=== PATIENT | male | born 1980 | race Caucasian/White ===

== ENCOUNTER 2021-01-17 18:28 | Emergency (ER) | payer MEDICAID ==
[~2021-01-17] VITALS: Ht 168.9 cm; Wt 98.5 kg
[2021-01-17 18:45] VITALS: BP 150/96
--- NOTE | 2021-01-17 19:20 | NUR ---
PT AMBULATED TO BED 12
--- NOTE | 2021-01-17 19:25 | NUR ---
RECEIVED IN BED 12, PRIMARILY TURK[place] SPEAKING MALE WITH C/O COUGH AND CHEST DISCOMFORT X 4 DAYS. HAS BEEN TAKING AMOXICILLIN, ALSO RECEIVED COVID VACCINE 5 DAYS AGO. IS AWAKE, ALERT WITH OCCASIONAL DRY COUGH NOTED. PMH: DENIES NKDA
--- NOTE | 2021-01-17 19:35 | NUR ---
Dr. Noriega examining patient.
[2021-01-17] MEDS ORDERED: PRED20TA5 PO (19:48)
[2021-01-17] MEDS ORDERED: IBUP-2213 PO (19:48)
[2021-01-17] MEDS ORDERED: PSEU120T22 PO (19:48)
[2021-01-17 20:01] VITALS: BP 130/78
--- NOTE | 2021-01-17 20:03 | NUR ---
Patient discharged with v/s stable. Written and verbal after care instructions given and explained. Patient alert, oriented and verbalized understanding of instructions. Ambulatory with steady gait. All questions addressed prior to discharge. ID band removed. Patient advised to follow up with PMD. Rx of IBUPROFEN, PREDNISONE AND SUDAFED given. Patient educated on indication of medication including possible reaction and side effects. Opportunity to ask questions provided and answered.
== END 2021-01-17 20:03 | disposition home or self-care (01) ==
LOC: MED 18:28
DX: R07.89 Other chest pain (principal); R05 Cough
CPT/HCPCS: 93005; 99283